=== PATIENT | female | born 1970 | race Caucasian/White ===

== ENCOUNTER 2024-11-03 19:22 | Emergency (ER) | payer MEDICAID ==
[~2024-11-03] VITALS: Ht 162.6 cm; Wt 77.1 kg
[2024-11-03] MEDS ORDERED: ALBU18HF2 INH (22:04)
[2024-11-03 23:38] VITALS: BP 132/88; TEMP 98.3; O2SAT 99
== END 2024-11-03 23:38 | disposition home or self-care (01) ==
LOC: ER 19:24
DX: J06.9 Acute upper respiratory infection, unspecified (principal); B97.89 Other viral agents as the cause of diseases classified elsewhere; R05.9 Cough, unspecified; J45.909 Unspecified asthma, uncomplicated; K50.90 Crohn's disease, unspecified, without complications; K58.9 Irritable bowel syndrome, unspecified; Z87.01 Personal history of pneumonia (recurrent); Z88.1 Allergy status to other antibiotic agents
CPT/HCPCS: 71045-TC; 86403-TC; 87070-TC